=== PATIENT | male | born 1985 | race Two or more races ===

== ENCOUNTER 2018-05-16 19:14 | Emergency (ER) | payer OTHER ==
--- NOTE | 2018-05-16 19:48 | PDOC ---
Rapid Medical Evaluation Time Seen by Provider: 05/16/18 19:45 Medical Evaluation: Allergies Allergy/AdvReac Type Severity Reaction Status Date / Time No Known Allergies Allergy Verified 07/29/15 14:35 05/16/18 19:45 I performed a brief in-person evaluation of this patient. Chief complaint is: Epigastric pain x 3 days, no nausea/vomiting/diarrhea/ constipation, no relief from Pepto-Bismol Pertinent physical exam findings include: No abdominal tenderness. I have ordered the following: CBC, CMP, lipase Patient will proceed to the ED for further evaluation. Discharge Disposition - Diagnosis Abdominal pain Qualifiers: Abdominal location: upper abdomen, unspecified Qualified Code(s): R10.10 - Upper abdominal pain, unspecified - Referrals - Patient Instructions - Post Discharge Activity
[2018-05-16 19:49] VITALS: BP 112/71; PULSE 66; TEMP 98; BMI 23.8
[2018-05-16] MEDS ORDERED: MAG HYDROX/AL HYDROX/SIMETH 30 ML UNIT-DOSE CUP PO ONE (19:49)
[2018-05-16] MEDS ORDERED: MAG HYDROX/AL HYDROX/SIMETH 30 ML UNIT-DOSE CUP ONE (19:51)
[2018-05-16 22:37] LABS: BASO % 0.2 % (0-2.0); EOS % 2.3 % (0-4.5); HEMATOCRIT 41.8 % (35.4-49); HEMOGLOBIN 14.3 GM/dL (11.7-16.9); LYMPH % 38.9 % (8-40); MCHC 34.3 g/dl (32.0-35.9); MEAN CELL VOLUME 87.5 fl (80-96); MEAN PLT VOLUME 7.6 fl (7.5-11.1); MONO % 10.9 % (3.8-10.2); NEUT % 47.7 % (42.8-82.8); PLATELET COUNT 211 K/MM3 (134-434); RBC 4.78 M/mm3 (4.00-5.60); RDW 13.2 % (11.9-15.9)
[2018-05-16 23:06] LABS: ALBUMIN 4.1 g/dl (3.4-5.0); ALK PHOS 114 U/L (45-117); ANION GAP 8 MMOL/L (8-16); BILIRUBIN,TOTAL 0.2 mg/dL (0.2-1); BLOOD UREA NITROGEN 21 mg/dL (7-18); CALCIUM 8.8 mg/dL (8.5-10.1); CHLORIDE 104 mmol/L (98-107); CO2 29 mmol/L (21-32); CREATININE 0.9 mg/dL (0.55-1.3); GLUCOSE,RANDOM 88 mg/dL (74-106); LIPASE 189 U/L (73-393); POTASSIUM 3.8 mmol/L (3.5-5.1); SGOT/AST 23 U/L (15-37); SGPT/ALT 38 U/L (13-61); SODIUM 141 mmol/L (136-145); TOT PROT 7.5 g/dl (6.4-8.2)
--- NOTE | 2018-05-16 23:51 | PDOC ---
History of Present Illness - General Chief Complaint: Pain Stated Complaint: STOMACH PAIN Time Seen by Provider: 05/16/18 19:45 History Source: Patient Exam Limitations: No Limitations - History of Present Illness Travel History: No Initial Comments: 05/16/18 23:46 HISTORY OF PRESENT ILLNESS: 33-year-old male presents to the emergency department for evaluation of waxing and waning upper abdominal pain for the past 4 days. Patient states on Monday he ate a lot of chili and had some alcoholic beverages while at a [employer] party began to experience pain Monday when he woke up. On Monday he ate some ceviche and other acidic foods which made his pain worse. Patient tried taking Pepto-Bismol with minimal relief of pain. Patient reports the pain decreases to 3/10 but after eating increases to 6/10. Patient is concerned as symptoms have continued over these past 4 days. No recent travel or sick contacts. PAST MEDICAL HISTORY: Denies past medical history SURGICAL HISTORY: Denies ALLERGIES: No known drug allergies REVIEW OF SYSTEMS General/Constitutional: Denies fever or chills. Denies weakness, weight change. HEENT: Denies change in vision. Denies ear pain or discharge. Denies sore throat. Cardiovascular: Denies chest pain or shortness of breath. Respiratory: Denies cough, wheezing, or hemoptysis. Gastrointestinal: Upper abdominal pain. Denies nausea, vomiting, diarrhea or constipation. Denies rectal bleeding. Genitourinary: Denies dysuria, frequency, or change in urination. Musculoskeletal: Denies joint or muscle swelling or pain. Denies neck or back pain. Skin and breasts: Denies rash or easy bruising. Neurologic: Denies headache, vertigo, loss of consciousness, or loss of sensation. Psychiatric: Denies depression or anxiety. Endocrine: Denies increased thirst. Denies abnormal weight change. Hematologic/Lymphatic: Denies anemia, easy bleeding, or history of blood clots. Allergic/Immunologic: Denies hives or skin allergy. Denies latex allergy. PHYSICAL EXAM General Appearance: Well-appearing, appropriately dressed. No apparent distress , no intoxication. Respiratory/Chest: Lungs CTAB. No shortness of breath, chest tenderness, respiratory distress, accessory muscle use. No crackles, rales, rhonchi, stridor , wheezing, dullness Cardiovascular: RRR. S1, S2. No JVD, murmur, bradycardia, tachycardia. Gastrointestinal/Abdominal: Normal bowel sounds. Abdomen soft, non-distended. No tenderness or rebound tenderness. No organomegaly, pulsatile mass, guarding, hernia, hepatomegaly, splenomegaly. Past History - Past Medical History Allergies/Adverse Reactions: Allergies Allergy/AdvReac Type Severity Reaction Status Date / Time No Known Allergies Allergy Verified 05/16/18 19:49 - Suicide/Smoking/Psychosocial Hx Smoking History: Never smoked Have you smoked in the past 12 months: No Hx Alcohol Use: No Drug/Substance Use Hx: No *Physical Exam - Vital Signs Last Vital Signs Temp Pulse Resp BP Pulse Ox 98.0 F 66 18 112/71 100 05/16/18 19:44 05/16/18 19:44 05/16/18 19:44 05/16/18 19:44 05/16/18 19:44 Moderate Sedation - Procedure Monitoring Vital Signs: Procedure Monitoring Vital Signs Temperature 98.0 F 05/16/18 19:44 Pulse Rate 66 05/16/18 19:44 Respiratory Rate 18 05/16/18 19:44 Blood Pressure 112/71 05/16/18 19:44 O2 Sat by Pulse Oximetry (%) 100 05/16/18 19:44 ED Treatment Course - LABORATORY CBC & Chemistry Diagram: 05/16/18 22:00 05/16/18 22:00 - ADDITIONAL ORDERS Additional order review: Laboratory Results 05/16/18 22:00 Sodium 141 Potassium 3.8 Chloride 104 Carbon Dioxide 29 Anion Gap 8 BUN 21 H Creatinine 0.9 Creat Clearance w eGFR > 60 Random Glucose 88 Calcium 8.8 Total Bilirubin 0.2 AST 23 ALT 38 Alkaline Phosphatase 114 Total Protein 7.5 Albumin 4.1 Lipase 189 05/16/18 22:00 RBC 4.78 MCV 87.5 MCHC 34.3 RDW 13.2 MPV 7.6 Neutrophils % 47.7 Lymphocytes % 38.9 Monocytes % 10.9 H Eosinophils % 2.3 Basophils % 0.2 - Medications Given in the ED: ED Medications Discontinued Medications Generic Name Dose Route Start Last Admin Trade Name Freq PRN Reason Stop Dose Admin Al Hydroxide/Mg Hydroxide 30 ml 05/16/18 19:49 05/16/18 19:53 Mylanta Oral Suspension - PO 05/16/18 19:50 30 ml ONCE ONE Administration Medical Decision Making - Medical Decision Making 05/16/18 23:50 A/P: 33-year-old male with upper abdominal pain for 4 days Laboratory testing including lipase are unremarkable. Maalox, Viscous Lidocaine, discharge *DC/Admit/Observation/Transfer Diagnosis at time of Disposition: Gastritis Qualifiers: Gastritis type: unspecified gastritis Chronicity: acute Gastritis bleeding: presence of bleeding unspecified Qualified Code(s): K29.00 - Acute gastritis without bleeding - Discharge Dispostion Disposition: HOME Condition at time of disposition: Stable Decision to Admit order: No - Referrals Referrals: Jailene Roldan MD [Staff Physician] - - Patient Instructions Printed Discharge Instructions: DI for Gastritis Additional Instructions: Eat a bland diet. Start with bananas, rice, applesauce and toast and slowly add other foods. Avoid spicy foods. Avoid alcohol. Keep well-hydrated. Return to emergency department for any worsening abdominal pain, nausea, vomiting or any other concerns. - Post Discharge Activity
== END 2018-05-17 02:01 | disposition home or self-care (01) ==
LOC: JERFT 19:14 → JER 19:14
DX: R10.10 Upper abdominal pain, unspecified (principal)
CPT/HCPCS: 36415; 80053; 83690; 85025; 99281-25